=== PATIENT | male | born 1935 | race Caucasian/White ===

== ENCOUNTER 2016-09-30 13:01 | Day surgery (SDC) | payer MEDICARE, BC ==
[~2016-09-30 13:01] MED LIST: ARICEPT10 MG PO; ASPIRIN81 MG PO; CELEXA20 MG PO; COLESTID1 GM PO; FLOMAX0.4 MG PO; NEUPRO1 EAC1 TRDERM; NEURONTIN300 MG PO; PRILOSEC20 MG PO; PRINIVIL10 MG PO; TRIAMCINOLONE A15 GM TOP; TYLENOL EXTRA500 MG PO; ULTRAM50 MG PO; ZETIA10 MG PO
== END 2016-09-30 14:01 | disposition short-term general hospital (02) ==
LOC: SURGOP 13:01
PROC: 3E0R33Z Introduction of Anti-inflammatory into Spinal Canal, Percutaneous Approach (ICD-10-PCS; principal; 2016-09-30)
PROC: 3E0R3BZ Introduction of Anesthetic Agent into Spinal Canal, Percutaneous Approach (ICD-10-PCS; 2016-09-30)
DX: M48.06 Spinal stenosis, lumbar region (principal); M54.16 Radiculopathy, lumbar region; I10 Essential (primary) hypertension; D64.9 Anemia, unspecified; N40.0 Benign prostatic hyperplasia without lower urinary tract symptoms; K21.9 Gastro-esophageal reflux disease without esophagitis; G47.30 Sleep apnea, unspecified; M19.90 Unspecified osteoarthritis, unspecified site; F03.90 Unspecified dementia, unspecified severity, without behavioral disturbance, psychotic disturbance, mood disturbance, and anxiety; Z88.2 Allergy status to sulfonamides
CPT/HCPCS: J1040; Q9967

== ENCOUNTER 2016-11-11 11:38 | Day surgery (SDC) | payer MEDICARE, BC | END 2016-11-11 13:40 | disposition short-term general hospital (02) | LOC: SURGOP 11:38 → INF/INJ 15:56 | PROC: 3E0R33Z Introduction of Anti-inflammatory into Spinal Canal, Percutaneous Approach (ICD-10-PCS; principal; 2016-11-11) | PROC: 3E0R3BZ Introduction of Anesthetic Agent into Spinal Canal, Percutaneous Approach (ICD-10-PCS; 2016-11-11) | DX: M48.06 Spinal stenosis, lumbar region (principal); M54.16 Radiculopathy, lumbar region; M19.90 Unspecified osteoarthritis, unspecified site; N40.0 Benign prostatic hyperplasia without lower urinary tract symptoms; K21.9 Gastro-esophageal reflux disease without esophagitis; G47.30 Sleep apnea, unspecified; I10 Essential (primary) hypertension; Z88.2 Allergy status to sulfonamides; Z79.82 Long term (current) use of aspirin; Z79.899 Other long term (current) drug therapy; Z86.2 Personal history of diseases of the blood and blood-forming organs and certain disorders involving the immune mechanism; Z87.19 Personal history of other diseases of the digestive system; Z98.49 Cataract extraction status, unspecified eye; Z96.659 Presence of unspecified artificial knee joint | CPT/HCPCS: J1040; Q9967 ==

== ENCOUNTER → 2016-11-15 | Outpatient (CLI) | payer MEDICARE, BC | END | disposition short-term general hospital (02) | LOC: CLPULM 10:10 | DX: R06.02 Shortness of breath (principal); R06.81 Apnea, not elsewhere classified ==

== ENCOUNTER → 2016-12-09 | Outpatient (CLI) | payer MEDICARE, BC | END | disposition short-term general hospital (02) | LOC: CLPAIN 08:23 | DX: M48.06 Spinal stenosis, lumbar region (principal); M54.16 Radiculopathy, lumbar region ==

== ENCOUNTER → 2017-01-13 | Outpatient (CLI) | payer MEDICARE, BC | END | disposition short-term general hospital (02) | LOC: CLPAIN 01:20 | DX: M54.16 Radiculopathy, lumbar region (principal); M48.06 Spinal stenosis, lumbar region ==

== ENCOUNTER → 2017-02-24 | Outpatient (CLI) | payer MEDICARE, BC | END | disposition short-term general hospital (02) | LOC: CLPULM 02-07 15:16 → CLPAIN 07:40 | DX: M54.16 Radiculopathy, lumbar region (principal); M48.06 Spinal stenosis, lumbar region ==